=== PATIENT | male | born 1960 | race Asian ===

== ENCOUNTER 2021-08-24 18:19 | Inpatient (IN) | payer MEDICAID ==
[~2021-08-24] VITALS: Ht 162.6 cm; Wt 77.3 kg
[2021-08-24] MEDS ORDERED: normal saline 1000ML IV soln IV ONE (18:30)
[2021-08-24] MEDS ORDERED: pantoprazole IV 80 MG in normal saline 100ml IV soln 100 ML IV ONE (18:45)
[2021-08-24] MEDS ORDERED: proCHLORperazine 10 MG/2 ml inj IV ONE (18:45)
[2021-08-24 18:51] LABS: BASOPHILS % (AUTO) 0.4 % (0-1); EOSINOPHILS % (AUTO) 0.1 % (0-6); HEMATOCRIT 36.8 % (42.0-52.0); HEMOGLOBIN 12.5 g/dl (14.0-17.9); LYMPHOCYTES # (AUTO) 1.5 X10'3 (1.1-4.8); LYMPHOCYTES % (AUTO) 14.1 % (21-51); MEAN CORPUSCULAR HEMOGLOBIN 30.9 PG (27.0-31.0); MEAN PLATELET VOLUME 7.7 FL (7.4-10.4); MONOCYTES # (AUTO) 0.2 X10'3 (0-0.9); MONOCYTES % (AUTO) 2.4 % (2-12); NEUTROPHILS # (AUTO) 8.6 X10'3 (1.8-7.7); PLATELET COUNT 198 X10'3 (140-440); RED BLOOD COUNT 4.05 X10'6 (4.70-6.10); RED CELL DISTRIBUTION WIDTH 13.8 % (11.5-14.5); WHITE BLOOD COUNT 10.3 X10'3 (4.5-11.0)
[2021-08-24 18:58] LABS: APTT 23 SECONDS (22-32)
[2021-08-24 19:04] LABS: ALANINE AMINOTRANSFERASE 42 U/L (12-78); ALBUMIN 2.9 G/DL (3.4-5.0); ALBUMIN/GLOBULIN RATIO 1.1 (1.1-1.5); ALKALINE PHOSPHATASE 40 IU/L (46-116); ANION GAP 12 (8-16); ASPARTATE AMINO TRANSFERASE 18 U/L (10-37); BILIRUBIN,TOTAL 1.4 MG/DL (0.1-1.0); BLOOD UREA NITROGEN 64 MG/DL (7-18); BUN/CREATININE RATIO 48.5 (5.4-32.0); CALCIUM 7.9 MG/DL (8.5-10.1); CHLORIDE 109 MMOL/L (99-107); CREATININE 1.32 MG/DL (0.60-1.10); GLUCOSE 198 MG/DL (70-104); POTASSIUM 4.5 MMOL/L (3.5-5.1); SODIUM 143 MMOL/L (135-145); TOTAL PROTEIN 5.6 G/DL (6.4-8.2); eGFR 55 ML/MIN
[2021-08-24] MEDS ORDERED: pantoprazole 40MG/NS 100ML BAG 100 ML IV ONE (19:10)
[2021-08-24] MEDS ORDERED: NO HOME MEDS (19:23)
--- NOTE | 2021-08-24 19:41 | NUR ---
Resting comfortably on gurney, no obvious distress
[2021-08-24] MEDS: octreotide inj. 1,250 MCG in normal saline 250ml IV soln 243.75 ML IV SCH ×2 (19:43→19:50)
[2021-08-24] MEDS ORDERED: ondansetron/PF 4mg/2ml inj IV ONE (20:05)
--- NOTE | 2021-08-24 20:14 | NUR ---
GI lab will take patient sometime after 0800 tomorrow, NPO now and no blood thinners.
[2021-08-24] MEDS ORDERED: FURO20TA4 PO (20:16)
[2021-08-24] MEDS ORDERED: POTA8CAP20 PO (20:16)
[2021-08-24] MEDS ORDERED: WARF-55 PO (20:16)
[2021-08-24] MEDS ORDERED: METO-467 PO (20:16)
[2021-08-24] MEDS ORDERED: ATOR40TA7 PO (20:16)
--- NOTE | 2021-08-24 20:30 | NUR ---
Patient to CT
--- NOTE | 2021-08-24 20:31 | NUR ---
Patient had large bloody liquid BM
[2021-08-24] MEDS ORDERED: temazepam 15mg capsule PO PRN (21:00)
[2021-08-24] MEDS ORDERED: mag hydrox/Alum hydrox/simeth 30ml oral suspension PO PRN (21:25)
[2021-08-24] MEDS ORDERED: diphenhydrAMINE 50 mg/ml inj IV PRN (21:25)
[2021-08-24] MEDS ORDERED: HYDROcodone/acetaminophen 5mg/325mg tablet PO PRN (21:25)
[2021-08-24] MEDS ORDERED: bisacodyl 10mg suppository rectal RC PRN (21:25)
[2021-08-24] MEDS ORDERED: morphine 2 MG/ML inj. syringe IV PRN ×2 (21:25)
[2021-08-24] MEDS ORDERED: diphenhydrAMINE 25mg capsule PO PRN (21:25)
[2021-08-24] MEDS ORDERED: HYDROcodone/acetaminophen 10/325mg tab PO PRN (21:25)
[2021-08-24] MEDS ORDERED: magnesium hydroxide 30ml (MOM) UD suspension PO PRN (21:25)
[2021-08-24] MEDS ORDERED: ondansetron/PF 4mg/2ml inj IV PRN (21:25)
[2021-08-24] MEDS ORDERED: acetaminophen 650mg rectal suppository RC PRN (21:25)
[2021-08-24] MEDS ORDERED: HYDROmorphone inj. 0.5 MG/0.5 ML DISP.SYRIN IV PRN (21:25)
[2021-08-24] MEDS ORDERED: acetaminophen 325mg tablet PO PRN ×2 (21:25)
[2021-08-24] MEDS ORDERED: ondansetron 4mg rapidly disintigrating tab PO PRN (21:25)
[2021-08-24 22:00] LABS: MAGNESIUM 1.7 MG/DL (1.5-2.4)
[2021-08-24] MEDS: normal saline 1000ml 1,000 ML IV SCH (22:28)
[2021-08-25] VITALS (11 sets, daily range): BP systolic 111–142; BP diastolic 62–99
[2021-08-25] MEDS ORDERED: pantoprazole 40MG/D5 100ML BAG 100 ML IV SCH (01:00)
[2021-08-25] MEDS: pantoprazole 40MG/NS 100ML BAG 100 ML IV SCH ×3 (01:34→12:40)
[2021-08-25] MEDS: docusate sod 100mg capsule PO SCH ×2 (06:20→19:35)
[2021-08-25] MEDS: normal saline 1000ml 1,000 ML IV SCH ×2 (07:29→19:40)
[2021-08-25 07:52] LABS: CLARITY,URINE CLEAR (Clear); GLUCOSE, URINE NEGATIVE (Neg); KETONES,URINE NEGATIVE (Neg); LEUKOCYTE ESTERASE ,URINE NEGATIVE (Neg); NITRITES, URINE NEGATIVE (Neg); OCCULT BLOOD,URINE NEGATIVE (Neg); PROTEIN,URINE NEGATIVE (Neg); UROBILINOGEN,URINE 0.2 E.U/dL (0.2-1.0)
--- NOTE | 2021-08-25 07:52 | NUR ---
RECIVED CALL FROM GI LAB SBAR PT INFORMATION ,GI WILL BE TAKING THE PT FOR EGD IN 30 MINS.UPDTAED THE PT AND .
[2021-08-25] MEDS: atorvastatin 20mg tablet PO SCH (08:00)
[2021-08-25] MEDS: metoprolol tartrate 12.5mg (1/2 tablet) PO SCH ×3 (08:00→19:39)
[2021-08-25] MEDS ORDERED: fentaNYL/PF 50MCG/1 ML 2ML syringe ONE (08:05)
[2021-08-25 08:06] LABS: COLOR,URINE STRAW (Yellow); UA COLLECTION TYPE VOIDED
[2021-08-25 08:06] LABS: BASOPHILS % (AUTO) 0.3 % (0-1); EOSINOPHILS % (AUTO) 0.1 % (0-6); HEMATOCRIT 28.7 % (42.0-52.0); HEMOGLOBIN 9.7 g/dl (14.0-17.9); LYMPHOCYTES # (AUTO) 2.1 X10'3 (1.1-4.8); LYMPHOCYTES % (AUTO) 26.7 % (21-51); MEAN CORPUSCULAR HEMOGLOBIN 30.7 PG (27.0-31.0); MEAN CORPUSCULAR HGB CONC 33.7 g/dL (33.0-36.5); MEAN PLATELET VOLUME 7.3 FL (7.4-10.4); MONOCYTES # (AUTO) 0.6 X10'3 (0-0.9); MONOCYTES % (AUTO) 7.7 % (2-12); NEUTROPHILS % (AUTO) 65.2 % (42-75); PLATELET COUNT 141 X10'3 (140-440); RED BLOOD COUNT 3.15 X10'6 (4.70-6.10); RED CELL DISTRIBUTION WIDTH 13.7 % (11.5-14.5); WHITE BLOOD COUNT 7.7 X10'3 (4.5-11.0)
[2021-08-25] MEDS ORDERED: diphenhydrAMINE 50 mg/ml inj ONE (08:06)
[2021-08-25] MEDS ORDERED: MIDAZolam 1 MG/ML 5ML VIAL ONE (08:06)
[2021-08-25] MEDS ORDERED: LIDOcaine Viscous 15ml cup ONE (08:06)
[2021-08-25 08:20] LABS: ALANINE AMINOTRANSFERASE 31 U/L (12-78); ALBUMIN 2.4 G/DL (3.4-5.0); ALBUMIN/GLOBULIN RATIO 1.1 (1.1-1.5); ALKALINE PHOSPHATASE 31 IU/L (46-116); ANION GAP 8 (8-16); ASPARTATE AMINO TRANSFERASE 13 U/L (10-37); BLOOD UREA NITROGEN 51 MG/DL (7-18); BUN/CREATININE RATIO 47.7 (5.4-32.0); CALCIUM 7.3 MG/DL (8.5-10.1); CHLORIDE 115 MMOL/L (99-107); CREATININE 1.07 MG/DL (0.60-1.10); GLUCOSE 113 MG/DL (70-104); POTASSIUM 4.6 MMOL/L (3.5-5.1); SODIUM 145 MMOL/L (135-145); TOTAL CARBON DIOXIDE 21.6 MMOL/L (24-32); TOTAL PROTEIN 4.5 G/DL (6.4-8.2); eGFR 70 ML/MIN
--- NOTE | 2021-08-25 08:40 | NUR ---
[facility].
--- NOTE | 2021-08-25 18:34 | NUR ---
Problems reprioritized. Patient report given, questions answered & plan of care reviewed with Natasha GRAHAM.
[2021-08-25] MEDS: pantoprazole 40mg Tablet.DR PO SCH (19:35)
[2021-08-26 02:00] VITALS: BP 106/66
[2021-08-26] MEDS: metoprolol tartrate 12.5mg (1/2 tablet) PO SCH ×4 (02:57→19:46)
[2021-08-26] MEDS: normal saline 1000ml 1,000 ML IV SCH (03:25)
[2021-08-26 06:00] VITALS: BP 101/56
[2021-08-26 06:14] LABS: BASOPHILS # (AUTO) 0.1 X10'3 (0-0.2); BASOPHILS % (AUTO) 1.8 % (0-1); EOSINOPHILS # (AUTO) 0.1 X10'3 (0-0.9); EOSINOPHILS % (AUTO) 1.7 % (0-6); HEMATOCRIT 26.5 % (42.0-52.0); HEMOGLOBIN 8.9 g/dl (14.0-17.9); LYMPHOCYTES # (AUTO) 2.7 X10'3 (1.1-4.8); LYMPHOCYTES % (AUTO) 43.9 % (21-51); MEAN CORPUSCULAR HEMOGLOBIN 30.9 PG (27.0-31.0); MEAN CORPUSCULAR HGB CONC 33.6 g/dL (33.0-36.5); MEAN CORPUSCULAR VOLUME 91.9 FL (78-98); MEAN PLATELET VOLUME 7.9 FL (7.4-10.4); MONOCYTES # (AUTO) 0.3 X10'3 (0-0.9); MONOCYTES % (AUTO) 4.7 % (2-12); NEUTROPHILS # (AUTO) 2.9 X10'3 (1.8-7.7); NEUTROPHILS % (AUTO) 47.9 % (42-75); PLATELET COUNT 141 X10'3 (140-440); RED BLOOD COUNT 2.89 X10'6 (4.70-6.10); RED CELL DISTRIBUTION WIDTH 14.2 % (11.5-14.5); WHITE BLOOD COUNT 6.1 X10'3 (4.5-11.0)
--- NOTE | 2021-08-26 06:37 | NUR ---
Patient in room [id number]. I have received report from Natasha GRAHAM and had the opportunity to ask questions and assume patient care.
[2021-08-26 06:51] LABS: ALANINE AMINOTRANSFERASE 28 U/L (12-78); ALBUMIN 2.5 G/DL (3.4-5.0); ALKALINE PHOSPHATASE 30 IU/L (46-116); ANION GAP 7 (8-16); ASPARTATE AMINO TRANSFERASE 15 U/L (10-37); BILIRUBIN,TOTAL 1.2 MG/DL (0.1-1.0); BLOOD UREA NITROGEN 28 MG/DL (7-18); BUN/CREATININE RATIO 26.2 (5.4-32.0); CALCIUM 7.6 MG/DL (8.5-10.1); CHLORIDE 115 MMOL/L (99-107); CREATININE 1.07 MG/DL (0.60-1.10); GLUCOSE 88 MG/DL (70-104); POTASSIUM 4.2 MMOL/L (3.5-5.1); SODIUM 146 MMOL/L (135-145); TOTAL CARBON DIOXIDE 23.9 MMOL/L (24-32); eGFR 70 ML/MIN
[2021-08-26] MEDS: docusate sod 100mg capsule PO SCH ×2 (08:00→19:48)
[2021-08-26] MEDS: pantoprazole 40mg Tablet.DR PO SCH ×2 (08:50→19:48)
[2021-08-26] MEDS: atorvastatin 20mg tablet PO SCH (08:50)
[2021-08-26 11:00] VITALS: BP 104/70
[2021-08-26] MEDS: dextrose 5%-water 1,000 ML IV SCH (14:50)
[2021-08-26 17:09] LABS: HEMATOCRIT 25.1 % (42.0-52.0); HEMOGLOBIN 8.5 g/dl (14.0-17.9); MEAN CORPUSCULAR HEMOGLOBIN 31.1 PG (27.0-31.0); MEAN CORPUSCULAR HGB CONC 33.9 g/dL (33.0-36.5); MEAN CORPUSCULAR VOLUME 91.7 FL (78-98); MEAN PLATELET VOLUME 7.8 FL (7.4-10.4); PLATELET COUNT 137 X10'3 (140-440); RED BLOOD COUNT 2.74 X10'6 (4.70-6.10); RED CELL DISTRIBUTION WIDTH 14.1 % (11.5-14.5); WHITE BLOOD COUNT 5.2 X10'3 (4.5-11.0)
[2021-08-26 18:00] VITALS: BP 103/69
[2021-08-26 22:00] VITALS: BP 105/65
[2021-08-27 02:00] VITALS: BP 144/66
[2021-08-27] MEDS: metoprolol tartrate 12.5mg (1/2 tablet) PO SCH ×2 (02:00→07:01)
[2021-08-27 06:00] VITALS: BP 118/72
--- NOTE | 2021-08-27 06:26 | NUR ---
Problems reprioritized. Patient report given, questions answered & plan of care reviewed with Crista.
[2021-08-27] MEDS: pantoprazole 40mg Tablet.DR PO SCH (07:00)
[2021-08-27 07:01] VITALS: BP_SYST 168
[2021-08-27] MEDS: dextrose 5%-water 1,000 ML IV SCH (07:02)
[2021-08-27] MEDS: atorvastatin 20mg tablet PO SCH (07:02)
[2021-08-27] MEDS: docusate sod 100mg capsule PO SCH (07:06)
[2021-08-27 09:25] LABS: BASOPHILS % (AUTO) 0.9 % (0-1); EOSINOPHILS # (AUTO) 0.2 X10'3 (0-0.9); EOSINOPHILS % (AUTO) 2.9 % (0-6); HEMATOCRIT 24.5 % (42.0-52.0); HEMOGLOBIN 8.4 g/dl (14.0-17.9); LYMPHOCYTES # (AUTO) 2.2 X10'3 (1.1-4.8); LYMPHOCYTES % (AUTO) 40.1 % (21-51); MEAN CORPUSCULAR HEMOGLOBIN 31.3 PG (27.0-31.0); MEAN CORPUSCULAR HGB CONC 34.3 g/dL (33.0-36.5); MEAN CORPUSCULAR VOLUME 91.2 FL (78-98); MONOCYTES # (AUTO) 0.5 X10'3 (0-0.9); MONOCYTES % (AUTO) 8.4 % (2-12); NEUTROPHILS # (AUTO) 2.6 X10'3 (1.8-7.7); NEUTROPHILS % (AUTO) 47.7 % (42-75); PLATELET COUNT 131 X10'3 (140-440); RED BLOOD COUNT 2.69 X10'6 (4.70-6.10); RED CELL DISTRIBUTION WIDTH 13.4 % (11.5-14.5); WHITE BLOOD COUNT 5.4 X10'3 (4.5-11.0)
[2021-08-27 09:51] LABS: ALBUMIN 2.5 G/DL (3.4-5.0); ALKALINE PHOSPHATASE 32 IU/L (46-116); ANION GAP 7 (8-16); ASPARTATE AMINO TRANSFERASE 24 U/L (10-37); BILIRUBIN,TOTAL 1.5 MG/DL (0.1-1.0); BLOOD UREA NITROGEN 15 MG/DL (7-18); BUN/CREATININE RATIO 14.3 (5.4-32.0); CALCIUM 7.6 MG/DL (8.5-10.1); CHLORIDE 111 MMOL/L (99-107); CREATININE 1.05 MG/DL (0.60-1.10); GLUCOSE 93 MG/DL (70-104); POTASSIUM 3.8 MMOL/L (3.5-5.1); SODIUM 143 MMOL/L (135-145); TOTAL CARBON DIOXIDE 25.5 MMOL/L (24-32); TOTAL PROTEIN 4.9 G/DL (6.4-8.2); eGFR 72 ML/MIN
[2021-08-27 10:39] LABS: ALANINE AMINOTRANSFERASE 34 U/L (12-78)
[2021-08-27] MEDS ORDERED: PANT40TA54 PO (11:15)
--- NOTE | 2021-08-27 12:21 | NUR ---
Pt. received discharge instructions with no further instructions; Pt. IV removed with catheter intact; Per Dr. Poole [facility] stable for [facility]. [facility]
== END 2021-08-27 12:20 | disposition home or self-care (01) | DRG 241 ==
LOC: ER 18:20 → ED HOLD 21:26 → PCU 3S 08-25 15:22
PROVIDERS: ADMIT Family Medicine; ATTEND Family Medicine
PROC: 0DB68ZX Excision of Stomach, Via Natural or Artificial Opening Endoscopic, Diagnostic (ICD-10-PCS; principal; 2021-08-25)
PROC: 0DB78ZX Excision of Stomach, Pylorus, Via Natural or Artificial Opening Endoscopic, Diagnostic (ICD-10-PCS; 2021-08-25)
DX: K25.4 Chronic or unspecified gastric ulcer with hemorrhage (principal); N17.9 Acute kidney failure, unspecified; J84.10 Pulmonary fibrosis, unspecified; I95.9 Hypotension, unspecified; E86.1 Hypovolemia; Z20.822 Contact with and (suspected) exposure to COVID-19; I25.10 Atherosclerotic heart disease of native coronary artery without angina pectoris; D62 Acute posthemorrhagic anemia; K29.70 Gastritis, unspecified, without bleeding; I12.9 Hypertensive chronic kidney disease with stage 1 through stage 4 chronic kidney disease, or unspecified chronic kidney disease; N18.9 Chronic kidney disease, unspecified; Z90.49 Acquired absence of other specified parts of digestive tract; Z79.899 Other long term (current) drug therapy
CPT/HCPCS: 36415; 43239; 71045; 71250; 74176; 80053; 81003; 83735; 83880; 85025; 85027; 85610; 85730; 86885; 86900; 86901; 87635; 93005; 96361; 96365; 96375; 99152; 99291; A4620; C9113; G0378; J0780; J1200; J2250; J2354; J2405; J3010; J7030; J7050; J7070